=== PATIENT | male | born 1975 | race African-American/Black ===

== ENCOUNTER 2018-03-30 20:11 | Emergency (ER) | payer MEDICAID ==
[~2018-03-30] VITALS: Ht 162.6 cm; Wt 63.5 kg
[2018-03-30 21:11] VITALS: BP 130/95
[2018-03-31] MEDS ORDERED: HYDROcodone-ACET 10/325MG TAB PO ONE (00:15)
== END 2018-03-31 01:10 | disposition home or self-care (01) ==
LOC: ER 20:11
DX: M21.42 Flat foot [pes planus] (acquired), left foot (principal); M21.41 Flat foot [pes planus] (acquired), right foot; M79.671 Pain in right foot; M79.672 Pain in left foot; M79.604 Pain in right leg; M79.605 Pain in left leg; F17.210 Nicotine dependence, cigarettes, uncomplicated; F12.10 Cannabis abuse, uncomplicated

== ENCOUNTER 2024-11-29 14:35 | Emergency (ER) | payer MEDICAID ==
[~2024-11-29] VITALS: Ht 162.6 cm; Wt 68.2 kg
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
[2024-11-29] MEDS ORDERED: HYDR-4902 PO (19:21)
[2024-11-29] MEDS ORDERED: LIDO5DIS21 TOP (19:21)
[2024-11-29] MEDS: HYDROcodone-ACET 5/325MG TAB PO ONE (19:27)
[2024-11-29 20:08] VITALS: BP 123/84; PULSE 58; RESP 18; TEMP 97.7; O2SAT 97
== END 2024-11-29 20:00 | disposition home or self-care (01) ==
LOC: EDBD 14:35 → ER 14:35
DX: S20.219A Contusion of unspecified front wall of thorax, initial encounter (principal); R91.1 Solitary pulmonary nodule; R42 Dizziness and giddiness; F17.210 Nicotine dependence, cigarettes, uncomplicated; Z79.899 Other long term (current) drug therapy; Y08.89XA Assault by other specified means, initial encounter; Y93.89 Activity, other specified; Y92.89 Other specified places as the place of occurrence of the external cause; Y99.8 Other external cause status
CPT/HCPCS: 70450; 71046